=== PATIENT | female | born 1985 | race Caucasian/White ===

== ENCOUNTER 2022-04-29 11:07 | Emergency (ER) | payer BC ==
[2022-04-29] MEDS ORDERED: methylPREDNISolone Sod Succ/PF 125 MG/2 ML VIAL ONE (11:19)
[2022-04-29] MEDS ORDERED: diphenhydrAMINE 50 MG/ML VIAL ONE (11:28)
[2022-04-29] MEDS ORDERED: Famotidine 20 MG TAB ONE (11:38)
[2022-04-29] MEDS ORDERED: Ketorolac Tromethamine 30 MG/ML VIAL ONE (11:41)
[2022-04-29 11:56] LABS: Hemoglobin 12.8 g/dL (12.0-15.5); Mean Corpuscular HGB CONC 32.7 g/dL (32.0-36.0); Mean Corpuscular Hemoglobin 29.9 pg (27.0-33.0); Mean Corpuscular Volume 91.6 fl (81.6-98.3); Mean Platelet Volume 8.9 fl (7.4-10.4); Platelet Count 620 10x3/uL (150-450); RBC Distribution Width 12.8 % (11.5-14.5); Red Blood Cell (RBC) Count 4.28 10x6/uL (3.90-5.03)
[2022-04-29 12:09] LABS: ALT (SGPT) 10 U/L (8-55); AST (SGOT) 17 U/L (5-34); Albumin 4.1 g/dL (3.5-5.0); Alkaline Phosphatase 37 U/L (40-110); Anion Gap 16 mmol/L (10-20); BUN (Urea Nitrogen) 6 mg/dL (7.0-18.7); Bilirubin, Total 0.8 mg/dL (0.2-1.2); Calc. Creatinine Clearance 0 mL/min (70-130); Calcium 8.6 mg/dL (7.8-10.44); Carbon Dioxide 18 mmol/L (22-29); Chloride 106 mmol/L (98-107); Globulin 2.8 g/dL (2.4-3.5); Glucose 166 mg/dL (70-105); Protein, Total 6.9 g/dL (6.0-8.3); Sodium 137 mmol/L (136-145)
[2022-04-29 12:30] LABS: MDiff Complete? YES
[2022-04-29 12:43] LABS: Band 3 % (5-11); Eosinophils 1 % (0-10); Lymphocytes 34 % (21-51); Monocytes 7 % (0-10); Neutrophil 44 % (42-75); Reactive Lymphocytes 11 % (0-10)
[2022-04-29 12:44] LABS: Platelet Morphology Comment Appears Increased
[2022-04-29 12:45] LABS: RBC Morphology Normal
== END 2022-04-29 15:58 | disposition home or self-care (01) ==
LOC: CSHERS 11:07
DX: T78.2XXA Anaphylactic shock, unspecified, initial encounter (principal)
CPT/HCPCS: 36415; 80053; 85025; 96374; 96375; J1200; J1885; J2930